=== PATIENT | female | born 1985 | race Caucasian/White ===

== ENCOUNTER 2022-10-14 11:01 | Emergency (ER) | payer BC, SELFPAY ==
--- NOTE | ~2022-10-14 | US_ITS ---
Pelvic ultrasound. Clinical History: Left pelvic mass Technique: Realtime transabdominal and transvaginal scanning of the pelvis was performed. Color flow Doppler and Doppler spectral analysis were performed. Findings: The uterus is anteverted. The endometrial stripe has a thickness of 7 mm. No focal mass is identified. The right ovary measures 2.8 x 1.8 x 2.5 cm. No significant right ovarian or adnexal mass is seen. V ascular flow present in the right ovary on Doppler spectral analysis. There is a 14.6 x 8.8 x 11.7 cm complex left adnexal mass, with large cystic components, but also nod ular echogenic areas as well. There is probable vascular flow within the periphery of the lesion. There is trace free fluid in the cul de sac. Impression: 14.6 x 0.8 x 11.7 cm mixed solid and cystic left adnexal mass, as seen on CT scan performed earlier t jose m. 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 No evidence for torsion. Trace free fluid. Reviewed, dictated and finalized at location M. R INSTALLATION HELPER Impression: 14.6 x 0.8 x 11.7 cm mixed solid and cystic left adnexal mass, as seen on CT sc an performed earlier today. This is again consistent with left ovarian neoplast ic lesion, including both benign and malignant etiologies. No evidence for torsion. Trace free fluid.
--- NOTE | ~2022-10-14 | CT_ITS ---
EXAMINATION: CT abdomen pelvis wo con DATE: 10/14/2022 11:49 INDICATION: Left flank pain TECHNIQUE: Computed tomography (CT) of the abdomen and pelvis was performed without intravenous contr ast. Automated exposure control and iterative reconstruction technique were employed. The dose-length product was 195.39 mGy-cm. COMPARISON: None FINDINGS: Lung bases are clear. No pleural effusion. Heart size is normal. Small pericardial effusion. Liver, g allbladder, spleen, pancreas and bilateral adrenal glands are normal. Kidneys and ureters are normal with no urolithiasis, hydroureteronephrosis or perinephric/ureteral stranding. 13.0 x 9.7 x 10.3 cm l ikely complex cystic mass in the pelvis with slightly greater than simple fluid attenuation and with suggestion of internal septations suspicious for ovarian neoplasm. This exerts mass effect upon the r etroverted uterus and the partially decompressed bladder. In addition to the left-sided flank pain th ere appear to be vessels extending to the left side of the mass suggesting potential left ovarian ching gin. Small amount of likely reactive free fluid in the pelvis. Bowels including the appendix are unre markable. Bones are unremarkable. IMPRESSION: 1. 13.0 x 9.7 x 10.3 cm likely complex cystic mass in the pelvis likely left ovarian primary suggesti ng neoplasm either benign or malignant. The size of the mass, positioning, anteriorly along the midli ne and left flank pain always concern for secondary ovarian torsion. Recommend further evaluation wit h pelvic ultrasound. Dr. Garcia discussed these findings with Dr. Prince at 12:05 PM. Reviewed, dictated and finalized at location L. ORATE TREASURY ANALYST IMPRESSION: 1. 13.0 x 9.7 x 10.3 cm likely complex cystic mass in the pelvis likely left ov christophe primary suggesting neoplasm either benign or malignant. The size of the m ass, positioning, anteriorly along the midline and left flank pain always surendra rn for secondary ovarian torsion. Recommend further evaluation with pelvic ultr asound. Dr. Garcia discussed these findings with Dr. Prince at 12:05 PM.
[2022-10-14 11:19] VITALS: BP 142/88; PULSE 87; RESP 16; TEMP 36.8; O2SAT 100
[2022-10-14] MEDS: ONDANSETRON INJ 4 MG/2 ML VIAL IV PUSH (11:37)
[2022-10-14] MEDS: MORPHINE SULFATE (*CRX) 4 MG/ML INJ IV PUSH (11:38)
[2022-10-14] MEDS: SODIUM CHLORIDE 0.9% IV 1,000 ML 999 ML IV CONT (11:38)
[2022-10-14 11:59] LABS: Basophils Percent Auto 0.7 % (0.2-1.2); Eosinophils Percent Auto 0.2 % (0-4.4); Hematocrit 32.2 % (37.0-47.0); Hemoglobin 10.3 g/dL (12.0-15.0); Immature Granulocyte Absolute 0.06 K/mm3 (0.00-0.031); Immature Granulocyte Percent A 1.1 % (0-0.5); Lymphocytes Absolute Auto 1.07 K/mm3 (0.9-3.2); Lymphocytes Percent Auto 18.8 % (18.3-44.2); Mean Corpuscular Hemoglobin 25.1 pg (26-34); Mean Corpuscular Volume 78.5 fl (80-100); Mean Platelet Volume 10.6 fl (7.4-10.4); Monocytes Absolute Auto 0.3 K/mm3 (0.1-0.6); Monocytes Percent Auto 5.1 % (2.6-8.5); Neutrophils Absolute Auto 4.2 K/mm3 (1.3-6.7); Neutrophils Percent Auto 74.1 % (45.5-73.1); Platelet Count Result 241 k/mm3 (150-375); Red Cell Distribution Width 16.5 % (11.5-14.5); White Blood Count 5.7 K/mm3 (4.5-10.0)
[2022-10-14 12:00] LABS: Add Urine Microscopic? YES; Appearance Urine Clear (Clear); Bilirubin Urine 1+ (Negative); Blood Urine 2+ (Negative); Color Urine Yellow (Yellow); Glucose Urine UA Negative (Negative); Ketones Urine 2+ mg/dL (Negative); Leukocyte Esterase Ur Negative LEU/UL (Negative); Nitrate Urine Negative (Negative); Protein Urine Negative (Negative); Specific Grav Ur >= 1.030 (1.001-1.035); Urobilinogen Urine 0.2 mg/dL (<2.0); pH Urine 5.5 (5.0-9.0)
[2022-10-14 12:06] LABS: INR 1.1; Prothrombin Time 13.7 Seconds (11.1-14.7)
[2022-10-14 12:07] LABS: Partial Thromboplastin Time 26.9 SECONDS (22.3-36.8)
--- NOTE | 2022-10-14 12:08 | ED.ABDPAIN ---
HPI - Abdominal Pain General Chief Complaint: Abdominal Pain Stated Complaint: abd pain Time Seen by Provider: 10/14/22 11:25 History of Present Illness HPI narrative: Pt presents with LLQ and left flank pain for two days. Pt says pain is constant and not relieved with anti cramping meds for UC visit two days ago. Pt is nauseated but not vomiting. Pt had loose BM yesterday but no diarrhea. Pt denies dysuria or frequency or fever. Related Data Allergies Allergy/AdvReac Type Severity Reaction Status Date / Time No Known Allergies Allergy Verified 10/14/22 11:22 Review of Systems Review of Systems: All systems reviewed & are unremarkable except as noted in HPI and below Exam Const: General: healthy appearing Nutritional Appearance: well nourished Orientation/consciousness: patient oriented x3 Limitations: no limitations Eyes: EOM: EOMs intact bilaterally Resp: Effort & Inspection: normal respiratory effort Auscultation: clear to auscultation bilaterally Cardio: Rate: regular rate Rhythm: regular rhythm GI: GI Palp: Yes Soft to palpation Auscultation: normal bowel sounds Other: pt describes tenderness in LLQ and left flank but not tender to palpation Back/Spine/Pelvis: Back: no CVA tenderness Skin: General skin exam: normal color Rashes: no rashes Neuro: General: patient oriented x3, moves all extremities and no focal motor deficits Speech: normal speech Extrem: General: normal to inspection Psych: Mental Status: mental status grossly normal Affect: normal affect Attitude: cooperative Course Vital Signs Vital signs: Vital Signs Temperature 98.2 F 10/14/22 11:19 Pulse Rate 87 10/14/22 11:19 Respiratory Rate 16 10/14/22 11:19 Blood Pressure 142/88 H 10/14/22 11:19 Pulse Oximetry 100 10/14/22 11:19 Temperature 98.2 F 10/14/22 11:19 Pulse Rate 87 10/14/22 11:19 Respiratory Rate 16 10/14/22 11:19 Blood Pressure 142/88 H 10/14/22 11:19 Pulse Oximetry 100 10/14/22 11:19 MDM - Abdominal Pain MDM Narrative Medical decision making narrative: kidney stone, pyelonephritis uti ovarian torsion all possible in addition to diverticulitis though less likely. CT shows left adnexal mass recommend pelvic sono, sono show complex left adnexal mass. d/w dr kim will see pt at 0900 tomorrow. Pt would prefer to go home on oral pain meds and follow up. Lab Data 10/14/22 11:47 10/14/22 11:47 Labs: Lab Results 10/14/22 10/14/22 10/14/22 Range/Units 11:47 11:47 11:47 WBC 5.7 (4.5-10.0) K/mm3 RBC 4.10 L (4.2-5.4) M/mm3 Hgb 10.3 L (12.0-15.0) g/dL Hct 32.2 L (37.0-47.0) % MCV 78.5 L (80-100) fl MCH 25.1 L (26-34) pg MCHC 32.0 (32-36) g/dl RDW 16.5 H (11.5-14.5) % Plt Count 241 (150-375) k/mm3 MPV 10.6 H (7.4-10.4) fl Immature Gran % (Auto) 1.1 H (0-0.5) % Neut % (Auto) 74.1 H (45.5-73.1) % Lymph % (Auto) 18.8 (18.3-44.2) % [place] % (Auto) 5.1 (2.6-8.5) % Eos % (Auto) 0.2 (0-4.4) % Baso % (Auto) 0.7 (0.2-1.2) % Lymph # (Auto) 1.07 (0.9-3.2) K/mm3 [place] # (Auto) 0.3 (0.1-0.6) K/mm3 Eos # (Auto) 0.0 (0-0.3) K/mm3 Baso # (Auto) 0.0 (0.0-0.1) K/mm3 Abs Immat Gran (auto) 0.06 H (0.00-0.031) K/mm3 Absolute Neuts (auto) 4.2 (1.3-6.7) K/mm3 Absolute Nucleated RBC 0.0 (0.0-0.012) K/mm3 Nucleated RBC % 0.0 (0.0-0.2) % PT 13.7 (11.1-14.7) Seconds INR 1.1 APTT 26.9 (22.3-36.8) SECONDS Sodium (137-145) mmol/L Potassium (3.4-5.0) mmol/L Chloride (98-107) mmol/L Carbon Dioxide (22-30) mmol/L Anion Gap (8-16) mmol/L BUN (7-17) mg/dL Creatinine (0.7-1.0) mg/dL Estim Creat Clear Calc ml/min Estimated GFR (59 - ) Glucose (65-110) mg/dL Calcium (8.4-10.2) mg/dL Total Bilirubin (0.2-1.3) mg/dL AST (14-36) U/L ALT (6-35) U/L Alkaline Phosphatase (38-126)
[2022-10-14 12:10] LABS: Alanine Aminotransferase 15 U/L (6-35); Albumin Level 4.3 g/dL (3.5-5.1); Alkaline Phosphatase 45 U/L (38-126); Anion Gap 7 mmol/L (8-16); Aspartate Amino Transferase 22 U/L (14-36); Bilirubin,Total 0.7 mg/dL (0.2-1.3); Blood Urea Nitrogen 13 mg/dL (7-17); Calcium 8.5 mg/dL (8.4-10.2); Carbon Dioxide 25 mmol/L (22-30); Chloride 103 mmol/L (98-107); Estimated CRCL calculation 106 ml/min; Estimated Glomerular Filt Rate > 60; Glucose 113 mg/dL (65-110); Potassium 3.4 mmol/L (3.4-5.0); Sodium 135 mmol/L (137-145)
[2022-10-14 12:21] LABS: Squamous Epithelial Cell Urine Few /hpf (Few)
[2022-10-14 12:22] LABS: Bacteria Urine Trace /hpf
[2022-10-14] MEDS: HYDROmorphone HCL INJ (*CRX) 1 MG/ML SYR IV PUSH (12:53)
--- NOTE | 2022-10-22 20:14 | PC.NURSE ---
LATE ENTRY This note is being entered to document information to the patient's record. The following information was omitted on [10/14/22], by [mayra olvera]. NS ended [id number]
== END 2022-10-14 14:42 | disposition home or self-care (01) ==
PROVIDERS: Emergency Provider Emergency Medicine; PCP Family Medicine
DX: N94.89 Other specified conditions associated with female genital organs and menstrual cycle (principal)
CPT/HCPCS: 36415; 74176; 76830; 76856; 80053; 81001; 81025; 85025; 85610; 85730; 96361; 96374; 96375; 99284; J1170; J2270; J2405; J7030

== ENCOUNTER 2022-10-15 10:29 | Day surgery (SDC) | payer BC, SELFPAY ==
[2022-10-15] VITALS (10 sets, daily range): BP systolic 109–133; BP diastolic 65–80; PULSE 49–68; RESP 12–16; TEMP 37.2; O2SAT 96–100
[2022-10-15] MEDS: ACETAMINOPHEN 500 MG TABLET 1000 MG PO (11:05)
[2022-10-15] MEDS: KETOROLAC 15 MG/ML VIAL (*BKC) IV PUSH (11:26)
[2022-10-15] MEDS: LACTATED RINGERS 1,000 ML 30 ML IV CONT ×2 (11:30→15:14)
[2022-10-15 11:56] LABS: Beta HCG Quantitative < 2.39 mIU/ML
--- NOTE | 2022-10-15 12:17 | WPDHPUPDATE1 ---
History and Physical Update Update Date/Time: 10/15/22 12:17 History and Physical has been reviewed, including an updated exam of the patient. There are NO changes in the patient's condition. Risks, benefits, and alternatives have been discussed and questions answered. Patient agrees to proceed with procedure.
--- NOTE | 2022-10-15 13:04 | P.PNAN_ITS ---
Anes - Eval Pre Procedure Procedure: Operation Date: 10/15/22 13:00 Proposed Procedures p Laparoscopic Resection of Pelvic Mass - Aba Castro MD Date/Time: 10/15/22 13:04 Surgeon: judy Pre Op Diagnosis: pelvic mass, pain Patient Data Age: 37 Gender: F Height: Weight: 69.4 kg Last Vital Signs Pulse 63 10/15/22 11:15 Resp 16 10/15/22 11:15 BP 122/67 10/15/22 11:15 Pulse Ox 100 10/15/22 11:15 O2 Del Method Room Air 10/15/22 11:15 Allergies Allergy/AdvReac Type Severity Reaction Status Date / Time No Known Allergies Allergy Verified 10/15/22 10:52 Home Medications Medication Instructions Recorded Confirmed Type ondansetron 4 mg disintegrating 4 mg PO Q8H PRN nausea and 10/14/22 10/15/22 Rx tablet vomiting #14 tabs oxycodone-acetaminophen 5 mg-325 1 tablet PO Q6H PRN pain #14 tabs 10/14/22 10/15/22 Rx mg tablet (Percocet) Laboratory Tests 10/15/22 11:03 Beta HCG, Quant < 2.39 mIU/ML mIU/ML Patient hx anesthesia problems: none Family hx anesthesia problems: none Results Review: All pre-operative results and documents have been reviewed as part of the pre- operative evaluation. Exam Day of Procedure 10/15/22 13:04 Heart: regular rate and rhythm Lungs: clear to auscultation Airway: Mallampati scale class II Neurological: alert and oriented
--- NOTE | 2022-10-15 13:10 | P.PNAN_ITS ---
Anes - Initial Pre Proc Eval Procedure: Operation Date: 10/15/22 13:00 Proposed Procedures p Laparoscopic Resection of Pelvic Mass - Aba Castro MD Date/Time: 10/15/22 13:10 Surgeon: Aba Castro MD Pre Op Diagnosis: pelvic mass, pain Patient Data Age: 37 Gender: F Height: Weight: 69.4 kg Last Vital Signs Pulse 63 10/15/22 11:15 Resp 16 10/15/22 11:15 BP 122/67 10/15/22 11:15 Pulse Ox 100 10/15/22 11:15 O2 Del Method Room Air 10/15/22 11:15 Allergies Allergy/AdvReac Type Severity Reaction Status Date / Time No Known Allergies Allergy Verified 10/15/22 10:52 Home Medications Medication Instructions Recorded Confirmed Type ondansetron 4 mg disintegrating 4 mg PO Q8H PRN nausea and 10/14/22 10/15/22 Rx tablet vomiting #14 tabs oxycodone-acetaminophen 5 mg-325 1 tablet PO Q6H PRN pain #14 tabs 10/14/22 10/15/22 Rx mg tablet (Percocet) Laboratory Tests 10/15/22 11:03 Beta HCG, Quant < 2.39 mIU/ML mIU/ML Patient hx anesthesia problems: none Family hx anesthesia problems: none Results Review: All pre-operative results and documents have been reviewed as part of the pre- operative evaluation. Anes - Eval Final PreProcedure Day of Procedure 10/15/22 13:10 Patient weight: normal Heart: regular rate and rhythm Lungs: clear to auscultation Airway: Mallampati scale class II Neurological: alert and oriented Last oral intake: >/= 8 hours ASA classification: II Emergent: no Anesthetic plan: proceed Anesthesia type and monitoring: general ETT and standard monitoring Results Review: All pre-operative results and documents have been reviewed as part of the pre- operative evaluation. Informed Consent: The patient's anesthetic plan and its attendant risks and benefits were discussed with the patient/family/POA. Questions were solicited and answers provided to the satisfaction of the patient/family/POA.
[2022-10-15] MEDS: SCOPOLAMINE 1.5 MG PATCH TRANSDERM (13:14)
--- NOTE | 2022-10-15 15:04 | W.PM.PROC2 ---
Procedure Note - Detailed Date of Procedure 10/15/22 Pre-op Diagnosis pelvic mass, pain Post-op Diagnosis Same ( Ovarian torsion, benign ovarian cyst) Procedure Performed Laparoscopic left salpingo-oophorectomy with resection of ovarian mass. Surgeon Aba Castro MD Anesthesia General Indications Pelvic pain Findings 15 cm ovary that is congested with blood. Twisted ovarian pedicle, the infundibulopelvic ligament was twisted as was the tube. The fallopian tube was congested with blood as well. The ovarian mass appeared benign. The pelvis appeared normal after removal of the mass. internal surfaces of the cyst had some yellow tissue consistent with corpus luteum tissue. Description of Procedure The patient was taken to the operating room. She was prepped and draped in the dorsal lithotomy position after induction general anesthesia. A 5 mm incision was made with a scalpel on the abdominal skin in the left upper quadrant of the abdomen. A 5 mm trocar was inserted into the intra-abdominal cavity under direct visualization the scope. In the same fashion a 15 mm left lower quadrant trocar was inserted and a 15 mm infraumbilical trocar was inserted. The pedicle of the ovary/ infundibulum pelvic ligament was cauterized and transected with LigaSure cautery. The ovarian mass and fallopian tube removed. It was drained. There was considerable green fluid. The ovary and mass were placed in a endobag. This was the large endobag. The opening of the bag was brought out the left lower quadrant incision site. Graspers such as a [place] were used to grasp the parenchyma of the vas and ovary. It was taken out the left lower quadrant trocar site in pieces. Scissors were used to bifurcate tissue. Ultimately all the tissue was removed from the bag and the bag was removed. Quinten-Liana Endoclose was used to close the left lower quadrant trocar site with a single 0 Vicryl suture. The pelvis was irrigated. The pneumoperitoneum was reduced. The trocars were removed. Skin was closed with subcuticular 4 micro. The patient's incisions were covered with Dermabond. She was taken recovery room in stable condition. Sponge lap and needle counts were correct x2. Estimated Blood Loss 25 Pathology Yes Complications No immediate complications Condition Stable Disposition Same day
[2022-10-15] MEDS: fentaNYL CITRATE INJ (*CRX) 100 MCG/2 ML VIAL 25 MCG IV PUSH (15:15)
[2022-10-15] MEDS: oxyCODONE HCL (*CRX) 5 MG TAB IR PO (15:54)
[2022-10-15] MEDS: ONDANSETRON INJ 4 MG/2 ML VIAL IV PUSH (16:40)
== END 2022-10-15 17:15 | disposition home or self-care (01) ==
PROVIDERS: PCP Family Medicine; Visit Provider Obstetrics & Gynecology
PROC: (CPT 49320; principal; 2022-10-15 13:00)
DX: N83.512 Torsion of left ovary and ovarian pedicle (principal); N83.8 Other noninflammatory disorders of ovary, fallopian tube and broad ligament; N83.12 Corpus luteum cyst of left ovary
CPT/HCPCS: 58661; 36415; 84702; 88305; A9270; J1100; J1885; J2250; J2405; J2704; J2710; J3010; J7120